=== PATIENT | female | born 1970 | race Caucasian/White ===

== ENCOUNTER 2018-03-02 13:20 | Inpatient (IN) | payer OTHER ==
[~2018-03-02] VITALS: Ht 165.1 cm; Wt 69.1 kg
[2018-03-02 13:32] VITALS: BP_SYST 116
[2018-03-02] MEDS ORDERED: NACL 0.9% 1,000 ML IV ONE (14:00)
[2018-03-02 14:07] LABS: BASOPHILS # (AUTO) 0.1 K/uL (0.0-0.2); BASOPHILS % (AUTO) 0.8 % (0.0-2.0); EOSINOPHILS # (AUTO) 0.1 K/uL (0.0-0.4); EOSINOPHILS % (AUTO) 1.1 % (0.0-4.0); HEMATOCRIT 41.7 % (36-48); HEMOGLOBIN 13.5 g/dL (12.0-16.0); LYMPHOCYTES # (AUTO) 2.5 K/uL (1.0-5.5); LYMPHOCYTES % (AUTO) 39.8 % (20.5-51.5); MEAN CORPUSCULAR HEMOGLOBIN 32 pg (27-31); MEAN CORPUSCULAR HGB CONC 32 % (32-36); MEAN CORPUSCULAR VOLUME 98 fL (79.0-98.0); MONOCYTES # (AUTO) 0.1 K/uL (0.0-1.0); MONOCYTES % (AUTO) 2.3 % (1.7-9.3); NEUTROPHILS # (AUTO) 3.5 K/uL (1.8-7.7); PLATELET COUNT (AUTO) 327 K/uL (130-430); RED BLOOD CELL COUNT(AUTO) 4.25 MIL/uL (4.2-6.2); RED CELL DISTRIBUTION WIDTH 15.3 % (9.0-15.0); WHITE BLOOD COUNT (AUTO) 6.3 K/uL (4.8-10.8)
[2018-03-02 14:23] LABS: ANION GAP 10 (5-15); CALCIUM 8.8 mg/dL (8.4-11.0); CHLORIDE 106 mmol/L (98-107); CREATININE 0.84 mg/dL (0.55-1.30); GLUCOSE 92 mg/dL (70-99); POTASSIUM 3.7 mmol/L (3.5-5.1); SODIUM SERUM 139 mmol/L (136-145); UREA NITROGEN, BLOOD 10 mg/dL (8-21)
[2018-03-02 14:24] LABS: GFR AFRICAN AMERICAN 93 mL/min (>90)
[2018-03-02 14:28] LABS: ALANINE AMINOTRANSFERASE 20 U/L (12-78); ALBUMIN 3.3 g/dL (3.4-4.8); ASPARTATE AMINOTRANSFERASE 17 U/L (10-37); TOTAL BILIRUBIN 0.2 mg/dL (0.0-1.0)
[2018-03-02 14:34] LABS: ACETAMINOPHEN < 1 ug/mL (1-30)
[2018-03-02 14:46] LABS: ALCOHOL, BLOOD 582 mg/dL (<10)
[2018-03-02] MEDS ORDERED: KCL 20 mEq in NS 1000 mL 1,000 ML IV SCH (16:09)
[2018-03-02] MEDS ORDERED: LORazepam 2 MG/ML VIAL IVP PRN (16:15)
[2018-03-02] MEDS ORDERED: ACETAMINOPHEN 650 MG SUPP.RECT RC PRN (16:15)
[2018-03-02] MEDS ORDERED: PANTOPRAZOLE SODIUM 40 MG/VIAL (PROTONIX) IVP ONE (16:15)
[2018-03-02] MEDS ORDERED: BANANA BAG 1 EA, MVI 10 ML, THIAMINE HCL 100 MG, FOLIC ACID 1 MG, MAGNESIUM SULFATE 1 G... IV SCH ×5 (16:15)
[2018-03-02 16:31] LABS: BARBITURATE, URINE NEGATIVE (NEG <=200); BENZODIAZEPINE, URINE NEGATIVE (NEG <=150); CANNABINOID, URINE NEGATIVE (NEG <=50); COCAINE, URINE NEGATIVE (NEG <=150); METHAMPHETAMINES SCREEN,URINE NEGATIVE (NEG <=500); OPIATE, URINE NEGATIVE (NEG <=100); PHENCYCLIDINE SCREEN,URINE NEGATIVE (NEG <=25); UR TRICYCLIC ANTIDEPRESSANTS NEGATIVE (NEG <=300); URINE AMPHETAMINE NEGATIVE (NEG <=500); URINE METHADONE NEGATIVE (NEG <=200); URINE OXYCODONE SCREEN NEGATIVE (NEG <=100); URINE PROPOXYPHENE SCREEN NEGATIVE (NEG <=300)
[2018-03-02 17:10] VITALS: BP_SYST 134
[2018-03-02 19:47] VITALS: BP_SYST 130
[2018-03-02] MEDS ORDERED: INSULIN ASPART 100 UNITS/ML, 10 ML VIAL (NovoLOG) SUBCUT PRN (21:00)
[2018-03-03 01:00] VITALS: BP_SYST 140
[2018-03-03] MEDS ORDERED: PANTOPRAZOLE SODIUM 40 MG/VIAL (PROTONIX) IVP SCH (09:00)
== END 2018-03-03 00:55 | disposition left against medical advice (07) | DRG 52 ==
LOC: SED 13:20 → STU 15:41
PROVIDERS: ADMIT Internal Medicine; ATTEND Internal Medicine
DX: G92 Toxic encephalopathy (principal); F10.229 Alcohol dependence with intoxication, unspecified
CPT/HCPCS: 36415; 70450-TC; 80053; 80307; 85025; 93005; 96360; 99285; C9113; G0378; G0480; G0481; G0482; J2060; J3411; J3475; J3480; J3490; J7030